=== PATIENT | male | born 1965 | race Caucasian/White ===

== ENCOUNTER 2016-08-16 20:38 | Emergency (ER) | payer OTHER ==
--- NOTE | 2016-08-16 23:00 | ED CLINICAL REPORT ---
Clinical Report - Physicians/Mid Levels [facility] [address] [place] [address] 08/16/2016 20:39 Patient: EMERSON MLILER Time Seen: 21:01. Arrived- By private vehicle. Historian- patient. HISTORY OF PRESENT ILLNESS Chief Complaint: CHEST PAIN. At its maximum, severity described as 1 / 10. When seen in the E.D., severity described as 1 / 10. Modifying factors. Not worsened by anything. Not relieved by anything. It is described as aching and it is described as located in the left chest area. No radiation. This started today at about 2:30 PM and is now gone. It was abrupt in onset and has been intermittent. Onset during light activity. No nausea, vomiting, difficulty breathing or diaphoresis. Similar symptoms previously: None. REVIEW OF SYSTEMS The patient has had chills. No fever, sweats, calf pain, cough or difficulty breathing. No pedal edema, palpitations, abdominal pain, black stools or bloody stools. No constipation, diarrhea, nausea, vomiting or urinary problems. No dizziness, fainting episodes, headache or weakness. All systems otherwise negative, except as recorded above. PAST HISTORY [place] [facility] [place]ister - Shannon Mcintosh at . Problems: Tetralogy of Fallot. Congenital Anomaly. Hives. Additional Surgeries: Open heart surgery at age 6. Pacemaker [2012]. Pulmonary valve replaced. Wrist. Medications: ASA Oral 325mg, daily. Allergies: Morphine and Related.(anxiety). SOCIAL HISTORY Never smoker. No alcohol use or drug use. Is a local resident. FAMILY HISTORY Cancer in first-degree relative (father). ADDITIONAL NOTES The nursing notes have been reviewed. PHYSICAL EXAM Vital Signs: 08/16/2016 20:41 BP: 158/74. HR: 73. RR: 15. O2 saturation: 100%. Temp: 97.8 F. Pain level now: 1/10. Have been reviewed. Appearance: Alert. No acute distress. Eyes: Pupils equal, round and reactive to light. ENT: Pharynx normal. Neck: Normal inspection. Neck supple. CVS: 4/6 systolic murmur with radiation across the chest. Respiratory: No respiratory distress. Breath sounds normal. Abdomen: Soft and nontender. Bowel sounds normal. No organomegaly. No mass. Back: Normal external inspection. Skin: Skin warm and dry. Normal skin color. Normal skin turgor. Extremities: Extremities exhibit normal ROM. No lower extremity edema. LABS, X-RAYS, AND EKG EKG: Atrial paced rhythm. RBBB. Left axis deviation. Prior EKG unavailable. The study has been independently viewed by me. Chest X-ray: Cardiomegaly. Pacemaker present. Sternotomy wires present. The X-rays were independently viewed by me. Laboratory Tests: CBC w Diff: (STEVIE: 08/16/2016 20:52) ( MsgRcvd 08/16/2016 21:08) Final results Test Result Flag Units (Reference) WHITE BLOOD COUNT 5.5 K/uL (4.5-11.5) RED BLOOD COUNT 4.92 M/uL (4.50-5.90) HEMOGLOBIN 14.3 gm/dL (13.5-17.5) HEMATOCRIT 43.3 % (41.0-53.0) MEAN CELL VOLUME 88 fL (80-100) MEAN CORPUSCULAR HGB 29 pg (26-34) MEAN CORPUSCULAR HGB CONC 33 g/dL (31-37) RED CELL DISTRIBUTION WIDTH 13.0 % (11.6-14.8) PLATELET COUNT 202 K/uL (150-400) NEUTROPHIL % 55.5 % (50-75) LYMPH % 37.2 % (25-40) MONO % 6.1 % (3-14) EOSINOPHIL % 0.7 % (0-4) BASOPHIL % 0.5 % (0-2) PT with INR: (STEVIE: 08/16/2016 20:52) ( MsgRcvd 08/16/2016 21:13) Final results Test Result Flag Units (Reference) INR 1.0 (0.8-1.2) Low Intensity Therapy: INR 1.5-2.0 PT range 18.5-23.1Mod.Intensity Therapy: INR 2.0-3.0 PT range 23.1-31.5High Intensity Therapy: INR 2.5-3.5 PT range 27.4-35.5High Intensity Therapy 2: INR 3.0-4.0 PT range 31.5-39.3 APTT 31 SECONDS (24-34) D-DIMER QUANTITATIVE < 0.27 L ug/mLFEU (0.27-0.52) The primary value of this quantitative assay relates toits negative predictive value (i.e. exclusion) of pulmonaryembolism/deep vein thrombosis/DIC.Elevated levels of d-dimer may also occur with:, age, cancer, inflammation, liver disease,post-op, infection, hematoma, coronary disease, peripheralarteriopathy, bleeding disorders and thrombolytic treatment.Results should be correlated with other clinical andradiological data.Testing Methodology: Latex Immunoassay BNP: (STEVIE: 08/16/2016 20:52) ( MsgRcvd 08/16/2016 21:42) Final results Test Result Flag Units (Reference) B-TYPE NATRIURETIC PEPTIDE 21.8 pg/ml (5-100) CMP: (STEVIE: 08/16/2016 20:52) ( MsgRcvd 08/16/2016 21:23) Final results Test Result Flag Units (Reference) GLUCOSE 106 mg/dL (70-110) BUN 15 mg/dL (7-18) CREATININE 1.0 mg/dL (0.6-1.3) Estimated GFR >60 mL/min Estimated GFR- >60 mL/min Note: Persistent reduction over 3 months in eGFR<60 mL/min/1.73 m2 defines CKD. Patients with eGFR values>=60 mL/min/1.73 m2 may also have CKD if evidence ofpersistent proteinuria. Additional information may be foundat www.kidney.org. SODIUM 143 mmol/L (136-145) POTASSIUM 3.7 mmol/L (3.5-5.1) CHLORIDE 105 mmol/L (98-107) CARBON DIOXIDE 29 mmol/L (21-32) CALCIUM 9.0 mg/dL (8.5-10.1) TOTAL PROTEIN 7.3 g/dL (6.4-8.2) ALBUMIN 4.4 g/dL (3.3-5.0) BILIRUBIN, TOTAL 0.6 mg/dL (0.0-1.0) ALKALINE PHOSPHATASE 79 U/L (46-116) AST (SGOT) 19 U/L (15-37) ALT (SGPT) 36 U/L (12-78) LIPASE 152 U/L (73-393) AMYLASE 43 U/L (25-115) CPK 161 U/L (24-260) TROPONIN I <0.05 ng/mL (0.00-1.5) TROPONIN REFERENCE RANGE:<0.1 NEGATIVE0.1-1.5 INDETERMINANT>1.5 POSITIVE . PROGRESS AND PROCEDURES Course of Care: Patient is stable. Discussed case with on-call health care provider, (John newby Mcintosh - Cardiology at - there are no beds there. She suggests that given his history of prosthetic valve she suggests blood cultures be obtained). Reviewed test results and need for additional work-up. Agreed upon treatment plan and decision to place in observation. Discussed case with hospitalist, (Dr. Gabi Valadez at [place]). Reviewed test results and need for additional work-up. Agreed upon treatment plan, need for patient follow-up and decision to place in observation. Health care provider will see patient in hospital. Old medical records reviewed. Disposition: Transferred to [facility]. CLINICAL IMPRESSION Chest pain. (Electronically signed by Estevan Pierson MD 08/17/2016 4:27)
--- NOTE | 2016-08-16 23:00 | ED ORDER SUMMARY ---
..... Patient: EMERSON MILLER OrderSheet [facility] VisitID: [id number] [place] [address] 51y, M Registration Date/Time: 08/16/2016 ORDER SHEET Weight: 72.5 kg (stated) Allergies: Morphine and Related GENERAL ORDERS: Chest 1V Urgent (20:59 08/16/2016 Reji ROBLES) (Ack 21:01 LMuller) (21:12 MCampbell) Coffee Maker (Continuous) (21:00 08/16/2016 Reji ROBLES) (Ack 21:01 LMshu) (21:41 RCollier R.N.) CBC w Diff Urgent (:08/16/2016 Reji ROBLES) (Ack 21:01 LMshu) (21:41 RCollier R.N.) CMP Urgent (21:08/16/2016 Reji ROBLES) (Ack 21:01 LMuller) (21:41 RCollier R.N.) UA-Culture if indicated Urgent (21:00 08/16/2016 Reji ROBLES) (Ack 21:01 LMullmary) PT with INR Urgent (21:00 08/16/2016 Reji ROBLES) (Ack 21:01 LMullmary) (21:41 RCollier R.N.) PTT Urgent (21:00 08/16/2016 Reji ROBLES) (Ack 21:01 LMshu) (21:41 RCollier R.N.) D-Dimer Urgent (21:00 08/16/2016 Reji ROBLES) (Ack 21:01 LMuller) (21:41 RCollier R.N.) Amylase Urgent (21:00 08/16/2016 Reji ROBLES) (Ack 21:01 LMuller) (21:41 RCollier R.N.) Lipase Urgent (:00 08/16/2016 Reji ROBLES) (Ack 21:01 LMuller) (21:41 RCollier R.N.) CPK Urgent (21:00 08/16/2016 Reji ROBLES) (Ack 21:01 LMuller) (21:41 RCollier R.N.) Troponin-I Urgent (21:00 08/16/2016 Reji ROBLES) (Ack 21:01 LMuller) (21:41 RCwillianier R.N.) Oxygen (2 L/min) (NC) (21:00 08/16/2016 Reji ROBLES) (Ack 21:01 LMuller) (21:41 RCwillianier R.N.) Pulse oximeter (21:00 08/16/2016 Reji ROBLES) (Ack 21:01 LMuller) (21:41 Yamilaier R.N.) EKG - ER Stat (21:00 08/16/2016 Reji ROBLES) (Ack 21:01 LMuller) (21:11 LMuller) BNP Urgent (21:19 08/16/2016 Reji ROBLES) (Ack 21:22 LMuller) (21:41 Yamilaier R.N.) Blood Culture (No) (N/A) Urgent (22:33 08/16/2016 Reji ROBLES) (Ack 22:40 CHagerty ER Delivery Helper) (23:02 CHagerty ER Delivery Helper) MEDICATION ORDERS: Aspirin PO 325 mg (NOW) (21:00 08/16/2016 Reji ROBLES) (Ack 21:31 Gideon R.N.) (21:34 Gideon R.N.) IV FLUIDS: IV Saline Lock (21:00 08/16/2016 Reji ROBLES) (Ack 21:41 Gideon R.N.) ORDER SHEET NOTES: [Electronically signed by Dhara Desai R.N. (00:15 08/17/2016)] [Electronically signed by Estevan Pierson MD (04:27 08/17/2016)] [Electronically locked/signed by Dhara Desai R.N. (00:15 08/17/2016)]
--- NOTE | 2016-08-16 23:00 | ED NURSING NOTES ---
Clinical Report - Nurses [facility] [address] [place] [address] 08/16/2016 20:39 Patient: EMERSON MILLER TRIAGE Triage time 20:42. Acuity: LEVEL 2. Chief Complaint: CHEST PAIN. Alert. No acute distress. --20:48 Dhara Desai R.N. 20:41 08/16/16. BP: 158/74. HR: 73. RR: 15. O2 saturation: 100% on room air. Temp: 97.8 F (oral). Pain level now: 08/02. --20:48 Dhara Desai R.N. Weight: 72.5 kg stated. Height/Length: 68 inches Per Patient. BMI: 24.3. --20:46 Dhara Desai R.N. Medications ASA Oral 325mg, daily. --20:45 Dhara Desai R.N. Allergies Morphine and Related.(anxiety) --20:46 Dhara Desai R.N. History Arrived by private vehicle. Historian: patient. Primary physician (Shannon Mcintosh ([facility])). This started today. Symptoms are constant and still present (at about 1430). SOCIAL HX: Never smoker. No alcohol use or drug use. NUTRITIONAL RISK ASSESSMENT: The nutritional risk assessment revealed no deficiencies. FUNCTIONAL ASSESSMENT: Functional assessment: no impairments noted. --20:48 Dhara Desai R.N. PROBLEMS: Congenital Anomaly. --20:45 Dhara Desai R.N. ADDITIONAL SURGERIES: Open heart surgery at age 6. Pacemaker [2012]. Pulmonary valve replaced. Wrist. --20:45 Dhara Desai R.N. Interventions ID band on patient. To treatment room. --20:48 Dhara Desai R.N. PHYSICAL ASSESSMENT Ambulatory to room. Patient gowned. GENERAL / NEURO / PSYCH: Alert. Oriented X 4. Appears in no acute distress. HEENT: Mucous membranes are pink. RESPIRATORY: Respirations not labored. CVS: Capillary refill less than 2 seconds. SKIN: Skin is warm and dry. --20:48 Dhara Desai R.N. NURSING PROGRESS NOTES Head of bed elevated. Two patient identifiers checked. Call light placed in reach. Side rails up x 1. Bed placed in lowest position. Brakes of bed on. --20:48 Dhara Desai R.N. Patient ready for evaluation- chart flagged. --20:48 Dhara Desai R.N. 20:50 08/16/2016 Site #1 started via IV in the left antecubital space with an 18g angiocath, with aseptic technique and good blood return; one attempt. Blood drawn: rainbow set. Labeled in the presence of the patient and sent to the lab. Saline lock flushed with 10 mL saline (Started by BRANT Del Rosario). --20:50 Dhara Desai R.N. EKG time: (2100). EKG was ordered, performed by a tech and shown to the ED physician. --21:12 Patrick Tovar, ER Supervisor Rubber Covering 21:34 08/16/2016 Aspirin PO Tablets 325 mg given. Allergies verified and confirmed 5 rights. --21:34 Dhara Desai R.N. 23:18 08/16/16. BP: 130/71. HR: 60. RR: 18. O2 saturation: 98% on room air. Pain level now: 0/10. --23:19 Dhara Desai R.N. ( pt has ambulated to restroom once (about one hour ago), unable to urinate at that time, states he is still unable to urinate now.). --23:21 Dhara Desai R.N. DISPOSITION / DISCHARGE 00:00 08/17/16. BP: 122/66. HR: 60. RR: 15. O2 saturation: 96%. Temp: 98 F (oral). Pain level now: 0/10. --00:01 Dhara Desai R.N. Patient's personal items include, CLOTHING, GLASSES, SHOES; items were placed in belongings bag and transported with the patient. Collection of belongings was witnessed by 1 nurse. --00:02 Dhara Desai R.N. Departure time: 00:12. Transferred to [facility]. Summary of care provided to EMS via paper. Report was given to a nurse via a phone call. Report included patient's care, treatment, medications, reviewed medication reconcilliation, and condition (including any recent changes or anticipated changes). All questions were answered. Report was acknowledged and care was transferred. --00:12 Dhara Desai R.N. 00:14 08/17/2016 Site #[address] upon transfer. --00:14 Dhara Desai R.N. Locked/Released at 08/17/2016 0:15 by Dhara Desai R.N.
--- NOTE | 2016-08-16 23:00 | ED ORDER SUMMARY ---
..... Patient: EMERSON MILLER OrderSheet [facility] VisitID: [id number] [place] [address] 51y, M Registration Date/Time: 08/16/2016 ORDER SHEET Weight: 72.5 kg (stated) Allergies: Morphine and Related GENERAL ORDERS: Chest 1V Urgent (20:59 08/16/2016 Reji ROBLES) (Ack 21:01 LMuller) (21:12 MCampbell) Crude Oil Driver (Continuous) (21:00 08/16/2016 Reji ROBLES) (Ack 21:01 LMshu) (21:41 RCollier R.N.) CBC w Diff Urgent (:08/16/2016 Reji ROBLES) (Ack 21:01 LMshu) (21:41 RCollier R.N.) CMP Urgent (21:08/16/2016 Reji ROBLES) (Ack 21:01 LMuller) (21:41 RCollier R.N.) UA-Culture if indicated Urgent (21:00 08/16/2016 Reji ROBLES) (Ack 21:01 LMullmary) PT with INR Urgent (21:00 08/16/2016 Reji ROBLES) (Ack 21:01 LMullmary) (21:41 RCollier R.N.) PTT Urgent (21:00 08/16/2016 Reji ROBLES) (Ack 21:01 LMshu) (21:41 RCollier R.N.) D-Dimer Urgent (21:00 08/16/2016 Reji ROBLES) (Ack 21:01 LMuller) (21:41 RCollier R.N.) Amylase Urgent (21:00 08/16/2016 Reji ROBLES) (Ack 21:01 LMuller) (21:41 RCollier R.N.) Lipase Urgent (:00 08/16/2016 Reji ROBLES) (Ack 21:01 LMuller) (21:41 RCollier R.N.) CPK Urgent (21:00 08/16/2016 Reji ROBLES) (Ack 21:01 LMuller) (21:41 RCollier R.N.) Troponin-I Urgent (21:00 08/16/2016 Reji ROBLES) (Ack 21:01 LMuller) (21:41 RCwillianier R.N.) Oxygen (2 L/min) (NC) (21:00 08/16/2016 Reji ROBLES) (Ack 21:01 LMuller) (21:41 RCwillianier R.N.) Pulse oximeter (21:00 08/16/2016 Reji ROBLES) (Ack 21:01 LMuller) (21:41 Yamilaier R.N.) EKG - ER Stat (21:00 08/16/2016 Reji ROBLES) (Ack 21:01 LMuller) (21:11 LMuller) BNP Urgent (21:19 08/16/2016 Reji ROBLES) (Ack 21:22 LMuller) (21:41 Yamilaier R.N.) Blood Culture (No) (N/A) Urgent (22:33 08/16/2016 Reji ROBLES) (Ack 22:40 CHagerty ER Reservoir Engineering Manager) (23:02 CHagerty ER Reservoir Engineering Manager) MEDICATION ORDERS: Aspirin PO 325 mg (NOW) (21:00 08/16/2016 Reji ROBLES) (Ack 21:31 Gideon R.N.) (21:34 Gideon R.N.) IV FLUIDS: IV Saline Lock (21:00 08/16/2016 Reji ROBLES) (Ack 21:41 Gideon R.N.) ORDER SHEET NOTES: [Electronically signed by Dhara Desai R.N. (00:15 08/17/2016)] [Electronically signed by Estevan Pierson MD (04:27 08/17/2016)] [Electronically locked/signed by Dhara Desai R.N. (00:15 08/17/2016)]
--- NOTE | 2016-08-16 23:00 | ED NURSING NOTES ---
Clinical Report - Nurses [facility] [address] [place] [address] 08/16/2016 20:39 Patient: EMERSON MILLER TRIAGE Triage time 20:42. Acuity: LEVEL 2. Chief Complaint: CHEST PAIN. Alert. No acute distress. --20:48 Dhara Desai R.N. 20:41 08/16/16. BP: 158/74. HR: 73. RR: 15. O2 saturation: 100% on room air. Temp: 97.8 F (oral). Pain level now: 08/02. --20:48 Dhara Desai R.N. Weight: 72.5 kg stated. Height/Length: 68 inches Per Patient. BMI: 24.3. --20:46 Dhara Desai R.N. Medications ASA Oral 325mg, daily. --20:45 Dhara Desai R.N. Allergies Morphine and Related.(anxiety) --20:46 Dhara Desai R.N. History Arrived by private vehicle. Historian: patient. Primary physician (Shannon Mcintosh (Reject Opener)). This started today. Symptoms are constant and still present (at about 1430). SOCIAL HX: Never smoker. No alcohol use or drug use. NUTRITIONAL RISK ASSESSMENT: The nutritional risk assessment revealed no deficiencies. FUNCTIONAL ASSESSMENT: Functional assessment: no impairments noted. --20:48 Dhara Desai R.N. PROBLEMS: Congenital Anomaly. --20:45 Dhara Desai R.N. ADDITIONAL SURGERIES: Open heart surgery at age 6. Pacemaker [2012]. Pulmonary valve replaced. Wrist. --20:45 Dhara Desai R.N. Interventions ID band on patient. To treatment room. --20:48 Dhara Desai R.N. PHYSICAL ASSESSMENT Ambulatory to room. Patient gowned. GENERAL / NEURO / PSYCH: Alert. Oriented X 4. Appears in no acute distress. HEENT: Mucous membranes are pink. RESPIRATORY: Respirations not labored. CVS: Capillary refill less than 2 seconds. SKIN: Skin is warm and dry. --20:48 Dhara Desai R.N. NURSING PROGRESS NOTES Head of bed elevated. Two patient identifiers checked. Call light placed in reach. Side rails up x 1. Bed placed in lowest position. Brakes of bed on. --20:48 Dhara Desai R.N. Patient ready for evaluation- chart flagged. --20:48 Dhara Desai R.N. 20:50 08/16/2016 Site #1 started via IV in the left antecubital space with an 18g angiocath, with aseptic technique and good blood return; one attempt. Blood drawn: rainbow set. Labeled in the presence of the patient and sent to the lab. Saline lock flushed with 10 mL saline (Started by BRANT Del Rosario). --20:50 Dhara Desai R.N. EKG time: (2100). EKG was ordered, performed by a tech and shown to the ED physician. --21:12 Patrick Tovar, ER Composite Worker 21:34 08/16/2016 Aspirin PO Tablets 325 mg given. Allergies verified and confirmed 5 rights. --21:34 Dhara Desai R.N. 23:18 08/16/16. BP: 130/71. HR: 60. RR: 18. O2 saturation: 98% on room air. Pain level now: 0/10. --23:19 Dhara Desai R.N. ( pt has ambulated to restroom once (about one hour ago), unable to urinate at that time, states he is still unable to urinate now.). --23:21 Dhara Desai R.N. DISPOSITION / DISCHARGE 00:00 08/17/16. BP: 122/66. HR: 60. RR: 15. O2 saturation: 96%. Temp: 98 F (oral). Pain level now: 0/10. --00:01 Dhara Desai R.N. Patient's personal items include, CLOTHING, GLASSES, SHOES; items were placed in belongings bag and transported with the patient. Collection of belongings was witnessed by 1 nurse. --00:02 Dhara Desai R.N. Departure time: 00:12. Transferred to [facility]. Summary of care provided to EMS via paper. Report was given to a nurse via a phone call. Report included patient's care, treatment, medications, reviewed medication reconcilliation, and condition (including any recent changes or anticipated changes). All questions were answered. Report was acknowledged and care was transferred. --00:12 Dhara Desai R.N. 00:14 08/17/2016 Site #[address] upon transfer. --00:14 Dhara Desai R.N. Locked/Released at 08/17/2016 0:15 by Dhara Desai R.N.
--- NOTE | 2016-08-17 00:34 | DIAGNOSTIC IMAGING REPORT ---
PROCEDURE: XR CHEST 1 VIEW INDICATION: Chest pain. History of tetralogy of Fallot repair and pulmonic valve. TECHNIQUE: Portable AP view (2100 hours). COMPARISON: None. FINDINGS: Lungs are clear. Left subclavian dual lead pacemaker. Status post median sternotomy. Mild cardiomegaly with mild prominence of the main pulmonary artery. No evidence of vascular congestion. Thorax is normal. IMPRESSION: 1. Status post median sternotomy with mild cardiomegaly and mild prominence of the main pulmonary artery. Findings are consistent with repair of tetralogy of Fallot. 2. Dual lead left subclavian pacemaker. 3. Otherwise negative chest. 4. Findings discussed with Dr. Estevan Pierson.
--- NOTE | 2016-08-17 04:28 | ED MAR SUMMARY ---
..... Medication Administration Record [facility] [address] [place] [address] Patient: EMERSON MILLER Visit ID: [id number] 51y, M Weight: 72.5 kg Height/Length: 68 in BMI: 24.3 ALLERGIES: Morphine and Related Given 21:34 08/16/2016 Dhara Desai RMarcelinoNMarcelino Medication Administered: ASPIRIN [PO], Dose: 325 mg Tablets PO. Medication Ordered: Aspirin PO 325 mg (NOW).
--- NOTE | 2016-08-17 04:28 | ED MED RECONCILIATION SUMMARY ---
Patient: EMERSON MILLER Medication Reconciliation Report [facility] VisitID: [id number] [address] [place] [address] 51y, M Registration Date/Time: 08/16/2016 Weight: 72.5 kg Height/Length: 68 in. BMI: 24.3 ALLERGIES: Morphine and Related The patient's Home Medications are listed below: THE FOLLOWING MEDICATIONS NEED TO BE RECONCILED: ASA Oral 325mg, daily The source(s) of the original Home Medication information: Not obtained. The following Medications were given to the patient in the Emergency Department: Aspirin [PO] PO 325 mg, administered: 08/16/2016 9:34:00 PM The following Medications were prescribed to the patient: None.
--- NOTE | 2016-08-17 04:28 | ED MAR SUMMARY ---
..... Medication Administration Record [facility] [address] [place] [address] Patient: EMERSON MILLER Visit ID: [id number] 51y, M Weight: 72.5 kg Height/Length: 68 in BMI: 24.3 ALLERGIES: Morphine and Related Given 21:34 08/16/2016 Dhara Desai RMarcelinoNMarcelino Medication Administered: ASPIRIN [PO], Dose: 325 mg Tablets PO. Medication Ordered: Aspirin PO 325 mg (NOW).
--- NOTE | 2016-08-17 04:28 | ED DISCHARGE INSTRUCTIONS ---
Patient: EMERSON MILLER General Instructions [facility] VisitID: [id number] [address] [place] [address] 51y, M Registration Date/Time: 08/16/2016 Chest pain. (Electronically signed by Estevan Pierson MD 08/17/2016 4:27)
--- NOTE | 2016-08-17 04:28 | ED MED RECONCILIATION SUMMARY ---
Patient: EMERSON MILLER Medication Reconciliation Report [facility] VisitID: [id number] [address] [place] [address] 51y, M Registration Date/Time: 08/16/2016 Weight: 72.5 kg Height/Length: 68 in. BMI: 24.3 ALLERGIES: Morphine and Related The patient's Home Medications are listed below: THE FOLLOWING MEDICATIONS NEED TO BE RECONCILED: ASA Oral 325mg, daily The source(s) of the original Home Medication information: Not obtained. The following Medications were given to the patient in the Emergency Department: Aspirin [PO] PO 325 mg, administered: 08/16/2016 9:34:00 PM The following Medications were prescribed to the patient: None.
--- NOTE | 2016-08-17 04:28 | ED DISCHARGE INSTRUCTIONS ---
Patient: EMERSON MILLER General Instructions [facility] VisitID: [id number] [address] [place] [address] 51y, M Registration Date/Time: 08/16/2016 Chest pain. (Electronically signed by Estevan Pierson MD 08/17/2016 4:27)
== END 2016-08-17 00:10 | disposition home or self-care (01) ==
LOC: ED SRH 20:38
DX: R07.9 Chest pain, unspecified (principal); Z95.0 Presence of cardiac pacemaker; Z95.2 Presence of prosthetic heart valve; Z79.1 Long term (current) use of non-steroidal anti-inflammatories (NSAID); Z88.5 Allergy status to narcotic agent
CPT/HCPCS: 90065; 90074; 90100; 90616; 91320; 91556; 92235; 92530; 92610; 94001; 94060; 95059